=== PATIENT | female | born 1955 | race Caucasian/White ===

== ENCOUNTER → 2022-07-17 | Outpatient (CLI) | payer MEDICARE, SELFPAY ==
[2022-07-17 12:14] LABS: Absolute Neutrophil Count 4.9 X10^3/uL (2.0-7.7); Basophil# 0.12 X10^3/uL; Basophil% 1.3 % (0-1); Eosinophil# 0.35 X10^3/uL; Eosinophils% 3.7 % (0-5); Hematocrit 47.3 % (37-47); Hemoglobin 15.4 g/dL (12.0-15.0); Lymphocyte % 35.6 % (19-41); Mean Corp Hgb Conc 32.6 g/dL (32-36); Mean Corpuscular Hgb 28.4 pg (27.0-32.0); Mean Corpuscular Volume 87.3 fL (81-99); Mean Platelet Vol. 11.3 fl (6.2-12.0); Monocyte# 0.76 X10^3/uL; NRBC Flagged by Analyzer 0 % (0-5); Neutrophil # 4.87 X10^3/uL (2.7-7.7); Platelet Count 407 K/mm3 (150-450); RBC Distribution Width CV 12.9 % (11.6-14.6); RBC Distribution Width SD 40.9 fl (35.1-43.9); Red Blood Count 5.42 M/mm3 (4.2-5.4); White Blood Count 9.5 K/mm3 (4.4-11.0)
[2022-07-17 12:39] LABS: ALB/GLOB Ratio 0.8 RATIO (0.9-2.4); AST(SGOT) 13 U/L (15-37); Alanine Aminotransfer ALT/SGPT 18 U/L (13-56); Albumin, Serum 3.4 g/dL (3.2-5.0); Alkaline Phosphatase 110 U/L (45-117); Anion Gap 13 (5-15); BUN 13 mg/dL (7-18); BUN/Creat Ratio 16.4 RATIO (10-20); Chloride 99 mmol/L (98-107); EST Glomerular Filtration Rate 76 mL/min (>60); Est Glom Filt Rate - Afr Amer 92 mL/min (>60); Globulin 4.4 g/dL (2.2-4.2); Glucose 271 mg/dL (74-106); Potassium 3.3 mmol/L (3.5-5.1); Protein, Total 7.8 g/dL (6.4-8.2); Sodium Level 136 mmol/L (136-145); T4 Free Direct 0.92 ng/dL (0.76-1.46); Thyroid Stim Hormone (TSH) 5.37 uIU/mL (0.358-3.74)
[2022-07-17 13:00] LABS: Microalbumin,Random Urine 86.6 mg/L (NO RANGE EST.); Microalbumin:Creatinine Ratio 29.6 mg/g CRE (<30 mg/g CRE)
== END | disposition home or self-care (01) ==
PROVIDERS: PCP Family Medicine; Referring Provider Family Medicine; Visit Provider Family Medicine
DX: E11.9 Type 2 diabetes mellitus without complications (principal); E03.9 Hypothyroidism, unspecified; I10 Essential (primary) hypertension
CPT/HCPCS: 36415; 80053; 82043; 82570; 84439; 84443; 85025

== ENCOUNTER → 2022-07-24 | Outpatient (CLI) | payer MEDICARE, SELFPAY ==
--- NOTE | 2022-07-24 11:49 | BI_ITS ---
MAMMOGRAPHY - BILATERAL SCREENING REASON FOR EXAM: Female, 66 years old. Routine annual screening examination. PERTINENT HISTORY: Non-contributory. TECHNIQUE: Digital bilateral breast augustus (3D mammographic acquisition) in the CC and MLO projections. 2-D mediolateral oblique (MLO) and craniocaudad (CC) views of both breasts were obtained. CAD: Full Field Digital Mammography with Computer Added Detection was performed. COMPARISON: Comparison is made with prior study dated 06/12/2011. FINDINGS: Breast Composition: The breasts are almost entirely fatty. There are no dominant masses or suspicious calcifications. Stable benign-appearing bilateral axillary lymph nodes. No other significant abnormalities are identified. There has been no significant change since the prior study. BI/SCRN MAMM (CAD)W/AUGUSTUS BILAT IMPRESSION: Stable bilateral screening mammogram. Yearly follow-up mammogram recommended. (A) ASSESSMENT CATEGORY: BIRADS Category 2: Benign. A letter regarding these results will be sent to the patient by the facility within 30 days. Approximately 10% of breast cancers are not detected by mammography. A normal mammogram should not delay biopsy of a clinically suspicious abnormality. [id number] Electronically Signed: Jose Wheeler MD at 12:38 EDT ,
== END | disposition home or self-care (01) ==
LOC: OPBI 11:47
PROVIDERS: PCP Family Medicine; Visit Provider Family Medicine
DX: Z12.31 Encounter for screening mammogram for malignant neoplasm of breast (principal)
CPT/HCPCS: 77063; 77067

== ENCOUNTER → 2022-09-27 | Outpatient (CLI) | payer MEDICARE, SELFPAY ==
[2022-09-27 18:11] LABS: T4 Free Direct 1.14 ng/dL (0.76-1.46); Thyroid Stim Hormone (TSH) 1.89 uIU/mL (0.358-3.74)
== END | disposition home or self-care (01) ==
LOC: BFHLAB 15:17
PROVIDERS: PCP Family Medicine; Visit Provider Family Medicine
DX: E03.9 Hypothyroidism, unspecified (principal)
CPT/HCPCS: 36415; 84439; 84443

== ENCOUNTER → 2023-06-05 | Outpatient (CLI) | payer MEDICARE, SELFPAY ==
[2023-06-05 12:31] LABS: Absolute Lymphocyte Count 2.59 X10^3/uL (0.83-4.51); Absolute Neutrophil Count 4.7 X10^3/uL (2.0-7.7); Basophil# 0.11 X10^3/uL; Basophil% 1.3 % (0-1); Eosinophil# 0.47 X10^3/uL; Eosinophils% 5.5 % (0-5); Hematocrit 44.4 % (37-47); Lymphocyte # 2.59 X10^3/ul (0.83-4.51); Lymphocyte % 30.4 % (19-41); Mean Corp Hgb Conc 31.5 g/dL (32-36); Mean Corpuscular Hgb 27.9 pg (27.0-32.0); Mean Corpuscular Volume 88.4 fL (81-99); Mean Platelet Vol. 10.9 fl (6.2-12.0); Monocyte# 0.63 X10^3/uL; Monocyte% 7.4 % (0-10); NRBC Flagged by Analyzer 0 % (0-5); Neutrophil # 4.67 X10^3/uL (2.7-7.7); Neutrophil % 54.9 % (47-70); Platelet Count 396 K/mm3 (150-450); RBC Distribution Width CV 13.5 % (11.6-14.6); RBC Distribution Width SD 43.8 fl (35.1-43.9); Red Blood Count 5.02 M/mm3 (4.2-5.4); White Blood Count 8.5 K/mm3 (4.4-11.0)
[2023-06-05 13:27] LABS: ALB/GLOB Ratio 0.7 RATIO (0.9-2.4); AST(SGOT) 11 U/L (15-37); Alanine Aminotransfer ALT/SGPT 18 U/L (13-56); Albumin, Serum 3.2 g/dL (3.2-5.0); Alkaline Phosphatase 102 U/L (45-117); Anion Gap 7 (5-15); BUN 10 mg/dL (7-18); BUN/Creat Ratio 12.6 RATIO (10-20); Calcium,Total 9.2 mg/dL (8.5-10.1); Chloride 102 mmol/L (98-107); Cholesterol 236 mg/dL (200); EST Glomerular Filtration Rate 76 mL/min (>60); Est Glom Filt Rate - Afr Amer 92 mL/min (>60); Globulin 4.3 g/dL (2.2-4.2); Glucose 268 mg/dL (74-106); High Density Lipoprotein 43 mg/dL; Potassium 4.1 mmol/L (3.5-5.1); Protein, Total 7.5 g/dL (6.4-8.2); Sodium Level 133 mmol/L (136-145); Triglycerides 172 mg/dL; Very Low Density Lipoprotein 34 mg/dL (5-40)
== END | disposition home or self-care (01) ==
LOC: BIMLAB 10:48
PROVIDERS: PCP Internal Medicine; Referring Provider Internal Medicine; Visit Provider Internal Medicine
DX: I10 Essential (primary) hypertension (principal); E66.01 Morbid (severe) obesity due to excess calories; Z68.43 Body mass index [BMI] 50.0-59.9, adult; E11.9 Type 2 diabetes mellitus without complications; E03.9 Hypothyroidism, unspecified
CPT/HCPCS: 36415; 80053; 80061; 84443; 85025

== ENCOUNTER → 2023-06-18 | Outpatient (CLI) | payer MEDICARE, SELFPAY ==
--- NOTE | 2023-06-18 11:12 | BD_ITS ---
STUDY: DUAL ENERGY X-RAY ABSORPTIOMETRY / DXA REASON FOR EXAM: Female, 67 years old. Screening TECHNIQUE: Bone Mineral Density (BMD) measurements of both forearms were obtained. COMPARISON: None. FINDINGS: Right Forearm: g/cm2 (0.578) / T-score (0.0) / Z-score (1.9) Left Forearm: g/cm2 (0.598) / T-score (0.4) / Z-score (2.3) BD/Dexa Bone Density/Append Skel IMPRESSION: The patient is considered normal as outlined below according to World Mart Organization (WHO) criteria with a low fracture risk. Reference Information: The T-score is the number of standard deviations above or below the standard which is normal for young adults at their peak bone mineral density. The World Health Organization (WHO) interprets the T-scores as follows: Above -1 Normal bone density Between -1 and -2.5 Osteopenia Equal to / or below -2.5 Osteoporosis As a practical clinical guideline, osteopenia may be graded as follows: Mild -1 through -1.5 Moderate -1.6 through -2.0 Severe -2.1 through -2.4 The Z-score is the number of standard deviations above or below age-matched controls. A Z-score of less than -1.5 would be considered abnormal. References: 1. NIH Osteoporosis and Related Bone Diseases www osteo.org 2. International Society for Clinical Densitometry www iscd.org 3. National Osteoporosis Foundation www nof.org Electronically Signed: Jose Wheeler MD at 13:12 EDT ,
== END | disposition home or self-care (01) ==
LOC: OPBD 10:59
PROVIDERS: PCP Internal Medicine; Referring Provider Internal Medicine; Visit Provider Internal Medicine
DX: Z13.820 Encounter for screening for osteoporosis (principal); Z78.0 Asymptomatic menopausal state
CPT/HCPCS: 77080; 77081

== ENCOUNTER → 2024-01-19 | Outpatient (CLI) | payer MEDICARE, SELFPAY ==
--- NOTE | 2024-01-19 09:52 | BI_ITS ---
MAMMOGRAPHY - BILATERAL SCREENING 3-D TOMOSYNTHESIS REASON FOR EXAM: Female, 68 years old. screening PERTINENT HISTORY: No significant family history. TECHNIQUE: 2-D mammograms and 3-D Tomosynthesis of the breast (s) were performed. CAD was performed. COMPARISON: 07/24/2022 FINDINGS: The breast composition is composed of scattered fibroglandular density. Scattered benign calcifications are seen. No dense spiculated masses or suspicious microcalcifications are identified. No architectural distortion is identified. There is no skin thickening or retraction. There has been no significant change since the prior study. BI/SCRN MAMM (CAD)W/AUGUSTUS BILAT IMPRESSION: No mammographic signs of malignancy. Routine yearly mammograms recommended. ASSESSMENT CATEGORY: BIRADS Category 1: Negative. A letter regarding these results will be sent to the patient by the facility within 30 days. FOLLOW UP RECOMMENDATION: Yearly follow up mammogram recommended. (A) Approximately 10% of breast cancers are not detected by mammography. A normal mammogram should not delay biopsy of a clinically suspicious abnormality. Electronically Signed: Kyaw Ding MD at 16:19 EST ,
--- OUTSIDE RECORDS SUMMARY | 2024-01-19 10:11 | XMS RPT_ITS | CCD ---
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 Name Role Phone Simon Raygoza MD Primary Care Provider KARYNA GALINDO Referring Unavailable SIMON RAYGOZA Primary Care Unavailable KARYNA GALINDO Attending Unavailable KARYNA GALINDO Attending Unavailable KARYNA GALINDO Referring Unavailable SIMON RAYGOZA Primary Care Unavailable KARYNA GALINDO Attending Unavailable SIMON RAYGOZA Primary Care Unavailable RONNIE PRATT Referring Unavailable Allergies Allergy Classification Reported Allergen(s) Allergy Type Date of Onset Reaction(s) Facility (1 source) Adhesive Tape Allergy to substance 06-05-2023 [facility] (1 source) Grass pollen Drug Allergy 06-05-2023 [facility] (1 source) house dust allergenic extract Drug Allergy 06-05-2023 [facility] (1 source) Latex Drug Allergy 12-17-2022 [facility] (1 source) Mold Extract Drug Allergy 06-05-2023 [facility] (1 source) Adhesive Tape-Silicones Drug Allergy 12-17-2022 [facility] Medications Current Medications Medication Drug Class(es) Dates Sig (Normalized) Sig (Original) benoxinate hydrochloride 4 mg/ml / fluorescein sodium 2.5 mg/ml ophthalmic solution (1 source) Diagnostic Dye Start: 08-04-2023 End: 08-04-2023 fluorescein-benoxi tammy 0.25-0.4 % 1 Drop (FLURESS) phenylephrine hydrochloride 25 mg/ml ophthalmic solution (1 source) alpha-1 Adrenergic Agonist Start: 08-04-2023 End: 08-04-2023 PHENYLephrine 2.5 % 1 Drop (AK-DILATE, ZENA-SYNEPHRINE) proparacaine hydrochloride 5 mg/ml ophthalmic solution (1 source) Local Anesthetic Start: 08-04-2023 End: 08-04-2023 proparacaine 0.5 % 1 Drop (ALCAINE) tropicamide 10 mg/ml ophthalmic solution (1 source) Anticholinergic Start: 08-04-2023 End: 08-04-2023 tropicamide 1 % 1 Drop (MYDRIACYL) Completed/Discontinued Medications Medication Drug Class(es) Dates Sig (Normalized) Sig (Original) 0.5 ml dulaglutide 3 mg/ml auto-injector (1 source) GLP-1 Receptor Agonist Start: 12-17-2023 TRULICITY 1.5 mg/0.5 mL pen injector fluorometholone 1 mg/ml ophthalmic suspension (2 sources) Corticosteroid Start: 08-20-2023 fluorometholone (FML LIQUID FILM) 0.1 % ophthalmic suspension Use 1 Drop in both eyes three times a day. 5 mL 2 08/20/2023 Active Problems Active Problems Problem Classification Problem Date Documented Da te Episodic/Chronic Cataract (8 sources) Senile combined form cataract of right eye; Translations: [Combined forms of age-related cataract, right eye] Onset: 08-20-2023 08-04-2023 Chronic Diabetes mellitus without complication (4 sources) Diabetes mellitus type 2 without retinopathy; Translations: [Type 2 diabetes mellitus without complications] Onset: 08-20-2023 08-04-2023 Chronic Disorders of lipid metabolism (4 sources) Hypercholesterolemi a; Translations: [Pure hypercholesterolemi a, unspecified] Onset: 08-20-2023 08-04-2023 Chronic Essential hypertension (3 sources) Essential hypertension; Translations: [Essential (primary) hypertension] Onset: 08-20-2023 01-14-2024 Chronic Other eye disorders (1 source) Optic atrophy of right eye; Translations: [Other optic atrophy, right eye] 08-04-2023 Chronic Other eye disorders (2 sources) Atrophy of optic disc; Translations: [Unspecified optic atrophy] Onset: 08-20-2023 01-14-2024 Chronic Other eye disorders (1 source) Unspecified optic atrophy; Translations: [Optic disc atrophy, right] Onset: 08-20-2023 Chronic Other nervous system disorders (3 sources) History of optic neuritis; Translations: [Personal history of other diseases of the nervous system and sense organs] Onset: 08-20-2023 08-04-2023 Episodic Past or Other Problems Problem Classification Problem Date Documented Da te Episodic/Chronic Blindness and vision defects (5 sources) Visual field defect; Translations: [Unspecified visual field defects] Onset: 08-20-2023 01-14-2024 Episodic Other nervous system disorders (1 source) Personal history of other diseases of the nervous system and sense organs; Translations: [History of optic neuritis] Onset: 08-20-2023 Episodic Results Test Name Value Interpretation Reference Range Facil ity Vital Signs Date Time Vital Sign Value Performing Clinician Faci lity 01-14-2024 13:19-0500 Diastolic blood pressure 76 mm[Hg] Karyna Galindo MD Work Phone: [facility] 01-14-2024 13:19-0500 Heart rate 92 /min Karyna Galindo MD Work Phone: [facility] 01-14-2024 13:19-0500 Systolic blood pressure 119 mm[Hg] Karyna Galindo MD Work Phone: [facility] 08-04-2023 09:39-0400 Diastolic blood pressure 82 mm[Hg] Karyna Galindo MD Work Phone: [facility] 08-04-2023 09:39-0400 Heart rate 71 /min Karyna Galindo MD Work Phone: [facility] 08-04-2023 09:39-0400 Systolic blood pressure 146 mm[Hg] Karyna Galindo MD Work Phone: [facility] Encounters Encounter Date Encounter Type Care Provider Facility Start: 01-14-2024 End: 01-14-2024 ambulatory KARYNA GALINDO Facility:[facility] Start: 01-14-2024 End: 01-14-2024 Patient encounter procedure Karyna Galindo MD Work Phone: Ophthalmology Procedures Date Procedure Procedure Detail Performing Clinician Start: 01-14-2024 IOL BIOMETRY W/ IOL CALC OU (BOTH EYES) Karyna Galindo MD Work Phone: Start: 08-04-2023 IOL BIOMETRY W/ IOL CALC OU (BOTH EYES) Karyna Galindo MD Work Phone: Start: 08-04-2023 Fundus photography w/interpretation & report Karyna Galindo MD Work Phone: Plan of Treatment Date Care Activity Detail Author Start: 01-14-2025 BP Controlled (<130/80) BP Controlle d (<130/80) [facility] Start: 12-15-2024 Pneumococcal Vaccine : 65+ (2 of 2 - PCV) Pneumococcal Vaccine: 65+ (2 of 2 - PCV) [facility] Start: 08-04-2024 Glaucoma screening Dilated Retinal E xam [facility] Start: 11-17-2023 Advance Directive Discussion Advance Directive Discussion [facility] Start: 11-17-2023 Depression Assessment [facility] Start: 07-18-2023 Covid-19 Vaccine ( season) Covid-19 Vaccine () [facility] Start: 07-18-2023 Influenza vaccination Influenza Vacc ine (#1) [facility] Start: 11-17-2022 Advance Directive Discussion Advance Directive Discussion [facility] Start: 11-17-2022 Depression Assessment Depression Ass essment [facility] Start: 2018 Bone Density Screening Bone Density Screening [facility] Start: 2018 Pneumococcal Vaccine : 65+ (1 - PCV) Pneumococcal Vaccine: 65+ (1 - PCV) [facility] Start: 2018 Screening for osteoporosis Bone Dens ity Screening [facility] Start: 2013 RSV Vaccine (1 - 1-d ose 60+ series) RSV Vaccine (1 - 1-dose 60+ series) [facility] Start: 2003 Shingrix Vaccine (1 of 2) Shingrix V accine (1 of 2) [facility] Start: 1998 Cologuard (FIT-DNA) Cologuard (FIT-D NA) [facility] Start: 1998 Colonoscopy Colonoscopy [facility] Start: 1998 Colorectal Cancer Screening Colorectal Cancer Screening [facility] Start: [address] COLONOGRAPHY [facility] Start: 1998 Diabetes Screening Diabetes Screenin g [facility] Start: 1998 Fecal Occult Blood Fecal Occult Bloo d [facility] Start: 1998 Lipid 1996 panel - S israel or Plasma Lipid Screening [facility] Start: 1998 Screening for malign ant neoplasm of colon [facility] Start: 1998 SIGMOIDOSCOPY SIGMOIDOSCOPY [facility] Start: 1993 Mammography Mammogram Screening [facility] Start: 1993 Screening for malign ant neoplasm of breast Mammogram Screening [facility] Start: 1972 Urine microalbumin profile DTa P,Tdap,Td Vaccine (1 - Tdap) [facility] Start: 1971 Annual PCP Team [employer] ida Disease Visit Annual PCP Team Chronic Disease Visit [facility] Start: 1971 Hepatitis B surface antibody level LDL Cholesterol [facility] Start: 1971 Hepatitis C Screening Hepatitis C Sc [facility] Start: 1971 Hepatitis C screening Hepatitis C [facility] Start: 1963 Diabetic foot examination Diabetic F oot Exam [facility] Start: 1963 Hepatitis B screening Urine Al bumin:Creatinine Ratio [facility] Start: 1958 Hemoglobin A1c measurement HbA1C [facility] Start: 06-20-1956 Covid-19 Vaccine (#1) Covid-19 Vacci ne (#1) [facility] Payers Date Payer Category Payer Medicare [id number] 2023 Medicare [id number] 2023 Medicare [id number] Social History Date Type Detail Facility Start: 08-04-2023 Tobacco smoking stat us NHIS Never smoked tobacco [facility] Start: 08-04-2023 Tobacco use and exposure Smoke less tobacco non-user [facility] Start: 08-04-2023 End: 01-14-2024 Alcohol intake Lifetime non-drinker (finding) [facility] Start: 08-04-2023 End: 01-14-2024 History of Social function [facility] Start: 08-04-2023 End: 01-14-2024 Tobacco use panel [facility] National Score (1-10 0), lower number is lower risk 72 [facility] Start: 1955 Sex Assigned At Not on file C [facility] Progress note 01-14-2024 Note Date & Type Note Facility 01-14-2024 Note HNO ID: [id number] Author: KARYNA GALINDO MD Service: ? Author Type: Physician Type: Progress Notes Filed: 01/14/2024 13:56 Note Text: ASSESSMENT/PLAN: 1. Combined forms of age-related cataract of right eye - ICD9: 366.19, ICD10: H25.811 (primary diagnosis) PHYSICAL EXAM: Vital Signs: Blood pressure 119/76, pulse 92. Respiratory: Normal breath sounds, no wheezing. CARD: Normal heart sounds 1 AND 2, normal sinus rhythm. Geri Barger has confirmed that she is no longer able to function adequately on a day-to-day basis because of her current visual condition. Further, it is my medical opinion that the cataract is the primary cause, or at least a significant cause of her visual dysfunction. Other eye diseases have been ruled out as primary cause of decreased vision. It is my expectation that visual function and quality of life will improve significantly with cataract extraction and intraocular lens implantation. The risks, benefits, alternatives, and complications of cataract surgery with intraocular lens implantation were discussed with Geri Barger in detail. Geri Barger appeared to understand and asked that I proceed with plans for cataract surgery. Upon eye examination, patient was found to have a visually significant cataract right eye . Discussed cataract surgery with patient and different intraocular lens implant options with patient: basic monofocal intraocular lens implant, Toric intraocular lens implant, and presbyopia correction intraocular lens implant. In my medical opinion, based on medical history and ocular examination, cataract surgery with intraocular lens implant will correct patient's vision and improve quality of patient's daily living activities. Patient wishes to have traditional cataract surgery with basic intraocular lens right eye 02/05/2024. Patient wishes to have cataract surgery with the option stated above. Patient understands that an intraocular lens implant does not necessarily replace the need for glasses. Patient understands that it is impossible for the surgeon to inform him/her of every possible complication that may occur. The surgeon has answered all of the patient's questions. Patient understands that if he/she has a mature or dense cataract, pseudoexfoliation cataract, or history of use of Flomax, he/she may require the use of Maluyugin Ring and/or Vision Blue during surgery. Patient understands the risks, benefits, and alternatives to surgery. A complete, comprehensive eye examination and biometry has been performed on Geri Barger. Begin: Current Ophthalmic Meds fluorometholone (FML LIQUID FILM) 0.1 % ophthalmic suspension Use 1 Drop in both eyes three times daily. Systane Complete Artificial Tears - Use 1 Drop into both eyes three times a day. 2. Combined forms of age-related cataract of left eye - ICD9: 366.19, ICD10: H25.812 Plan surgery left eye once right eye is stable 3. DM type 2 without retinopathy (HCC) - ICD9: 250.00, ICD10: E11.9 - Please keep your blood sugar under good control to minimize risk of ocular complications from diabetes. Last A1c 7.3 - Continue to monitor with PCP 4. Visual field loss right eye 5. History of optic neuritis - ICD9: V12.49, ICD10: Z86.69 6. Other optic atrophy, right eye - ICD9: 377.10, ICD10: H47.291 Central scotoma right eye Discussed with patient that this field loss will not improve with cataract surgery, may be more pronounced post surgery 7.High myopia both eyes Reviewed signs, symptoms of Retinal detachment with patient 8. Hypercholesteremia - ICD9: 272.0, ICD10: E78.00 9. Essential hypertension - Continue to monitor with PCP I have confirmed and edited as necessary the relevant HPI, ophthalmic history, ROS, and the neuro exam findings as obtained by others. I have seen and examined Geri Barger. I have discussed the case and the management of this patient's care with the Resident/Fellow, if applicable. I also have reviewed and agree with the assessment and plan as stated above and agree with all of its relevant components. [facility] History and physical note 01-14-2024 Karyna Galindo MD - 01/14/2024 1:53 PM EST Note Date & Type Note Facility 01-14-2024 History and physi lidia note HISTORY AND PHYSICAL EXAMINATION SERVICE DATE: 01/14/2024 SERVICE TIME: PRIMARY CARE PHYSICIAN: Simon Raygoza MD REASON FOR VISIT: Geri Barger is a 68 year old female who is being seen for combined age related cataract right eye The patient has the following: ACTIVE PROBLEM LIST Combined Form of Age-Related Cataract, Right Eye Combined Form of Age-Related Cataract, Left Eye Type 2 Diabetes Mellitus Without Retinopathy (Hcc) History of Optic Neuritis Optic Disc Atrophy, Right Visual field loss/right eye High Myopia, Bilateral Essential Hypertension Hypercholesteremia SUBJECTIVE CHIEF COMPLAINT: Combined age related cataract right eye HPI: blurry vision, difficulty reading, difficulty watching television, difficulty with glare both eyes PAST MEDICAL HISTORY Diagnosis Date Hypercholesteremia Hypothyroidism Optic neuritis 1997 Right Eye Type 2 diabetes mellitus (HCC) History reviewed. No pertinent surgical history. FAMILY HISTORY Problem Relation Age of Onset No Ocular Disease No Family History SOCIAL HISTORY: Social History Tobacco Use Smoking status: Never Smokeless tobacco: Never Substance Use Topics Alcohol use: Never Drug use: Never MEDICATIONS: Prior to Admission medications as of 01/14/24 1315 Medication Sig Last Dose Taking TRULICITY 1.5 mg/0.5 mL pen injector Taking Yes lisinopril (ZESTRIL) 20 mg tablet Take 20 mg by mouth two times a day. Taking Yes levothyroxine (SYNTHROID) 88 mcg tablet Taking Yes lovastatin (MEVACOR) 20 mg tablet Taking Yes glipiZIDE (GLUCOTROL) 10 mg tablet Take 10 mg by mouth twice daily before meals. Taking Yes fluorometholone (FML LIQUID FILM) 0.1 % ophthalmic suspension Use 1 Drop in both eyes three times a day. No medication comments found. CURRENT ALLERGIES: ALLERGIES Allergen Reactions Adhesive Tape (Janeth* Rash Grass Pollen Rash House Dust Rash Mold Rash Adhesive Tape-Silic* Rash Latex Rash REVIEW OF SYSTEMS: PAIN ASSESSMENT: General: No weight loss, malaise or fevers. Neuro: No Hx of stroke or seizures Respiratory: No history of current cough or dyspnea, or pneumonia in the past 6 weeks. No history of respiratory/pulmonary symptoms or problems Cardiovascular: Positive for: Hypertension GI: No history of GI symptoms or problems. No history of esophageal varices, recent ascites, or ETOH greater than 2 drinks per day. : No history of UTI in past 6 weeks. No history of renal failure. Not currently on or requiring dialysis. No history of symptoms or problems. PATIENT SUPPORT ASSOCIATE: Negative for abnormal vaginal bleeding, abnormal vaginal discharge. : Denies Endocrine: Diabetes Mellitus on insulin Hematology: No history of bleeding or clotting disorder. Pt is not taking anti-coagulation or platelet medications. No history of hematological symptoms or problems. Oncology: No history of CA metastasis, chemo within 30 days, or radiotherapy within 90 days. Has not lost 10% of body wt in 6 months. No history of oncological symptoms or problems. Psych: No history of psychiatric symptoms or problems. Musculoskeletal: Negative for joint pain or swelling, back pain or muscle pain. Skin: Negative for lesions, rash and itching. PHYSICAL EXAM: VITALS: BP 119/76 Pulse 92 General: Alert and oriented Skin: Normal color, no rash, no lesions. HEENT: EOM, pupils equal, round and reactive. Cardiovascular: Normal S1 & S2, no rubs, murmurs or gallops. No JVD. Pulse regular. Lungs: Normal breath sounds, no wheezes or crackles. Abdomen: Soft, non-tender, no rigidity. Extremities: No deformity, no edema or tenderness, no joint swelling or clubbing. Neurological: Normal cognition and motor skills. Pulses: Carotid and radial pulses normal +2. Diagnostic tests reviewed for today's visit: No new labs or tests ASSESSMENT Medication and Non-Pharmacologic VTE Prophylaxis/Anticoagulants VTE Prophylaxis: VTE prophylaxis appropriate Impression: There is no known pertinent medical condition which may affect jie-operative course Clinical Risk Factors for Possible Cardiac Complications: None Patient is scheduled for a low-risk procedure. FUNCTIONAL STATUS: Walk indoors, such as around the house (1.75 METs) Functional Class (NYHA): N/A [facility]: Not obtained PLAN CONSULTS: Patient does not require consults for optimization at this time. The Following Tests/Procedures Have Been Initiated: None Instructions Given to Patient: Patient given verbal and written preop instructions and voices comprehension and compliance. SIGNATURE: Karyna Galindo MD PATIENT NAME: Geri Barger DATE: January 14, 2024 TIME: 1:53 PM PAGER/CONTACT #: documented in this encounter [facility] Instructions 01-14-2024 Patient Instructions Note Date & Type Note Facility 01-14-2024 Instructions Karyna Galindo MD - 01/14/2024 1:40 PM EST Continue: Current Ophthalmic Meds fluorometholone (FML LIQUID FILM) 0.1 % ophthalmic suspension Use 1 Drop in both eyes three times daily. Systane Complete Artificial Tears - Use 1 Drop into both eyes three times a day. Surgery is scheduled for right eye 02/05/2024 If you have any questions please contact our office at [phone]. After office hours or on the weekend, please call Dr. Galindo on his cell phone at [phone]. documented in this encounter [facility] History of Present illness Narrative 01-14-2024 Karyna Galindo MD - 01/14/2024 1:33 PM EST Note Date & Type Note Facility 01-14-2024 History of Presen t illness Narrative ASSESSMENT/PLAN: 1. Combined forms of age-related cataract of right eye - ICD9: 366.19, ICD10: H25.811 (primary diagnosis) PHYSICAL EXAM: Vital Signs: Blood pressure 119/76, pulse 92. Respiratory: Normal breath sounds, no wheezing. CARD: Normal heart sounds 1 & 2, normal sinus rhythm. Geri Barger has confirmed that she is no longer able to function adequately on a day-to-day basis because of her current visual condition. Further, it is my medical opinion that the cataract is the primary cause, or at least a significant cause of her visual dysfunction. Other eye diseases have been ruled out as primary cause of decreased vision. It is my expectation that visual function and quality of life will improve significantly with cataract extraction and intraocular lens implantation. The risks, benefits, alternatives, and complications of cataract surgery with intraocular lens implantation were discussed with Geri Barger in detail. Geri Barger appeared to understand and asked that I proceed with plans for cataract surgery. Upon eye examination, patient was found to have a visually significant cataract right eye . Discussed cataract surgery with patient and different intraocular lens implant options with patient: basic monofocal intraocular lens implant, Toric intraocular lens implant, and presbyopia correction intraocular lens implant. In my medical opinion, based on medical history and ocular examination, cataract surgery with intraocular lens implant will correct patient's vision and improve quality of patient's daily living activities. Patient wishes to have traditional cataract surgery with basic intraocular lens right eye 02/05/2024. Patient wishes to have cataract surgery with the option stated above. Patient understands that an intraocular lens implant does not necessarily replace the need for glasses. Patient understands that it is impossible for the surgeon to inform him/her of every possible complication that may occur. The surgeon has answered all of the patient's questions. Patient understands that if he/she has a mature or dense cataract, pseudoexfoliation cataract, or history of use of Flomax, he/she may require the use of Maluyugin Ring and/or Vision Blue during surgery. Patient understands the risks, benefits, and alternatives to surgery. A complete, comprehensive eye examination and biometry has been performed on Geri Barger. Begin: Current Ophthalmic Meds fluorometholone (FML LIQUID FILM) 0.1 % ophthalmic suspension Use 1 Drop in both eyes three times daily. Systane Complete Artificial Tears - Use 1 Drop into both eyes three times a day. 2. Combined forms of age-related cataract of left eye - ICD9: 366.19, ICD10: H25.812 Plan surgery left eye once right eye is stable 3. DM type 2 without retinopathy (HCC) - ICD9: 250.00, ICD10: E11.9 - Please keep your blood sugar under good control to minimize risk of ocular complications from diabetes. Last A1c 7.3 - Continue to monitor with PCP 4. Visual field loss right eye 5. History of optic neuritis - ICD9: V12.49, ICD10: Z86.69 6. Other optic atrophy, right eye - ICD9: 377.10, ICD10: H47.291 Central scotoma right eye Discussed with patient that this field loss will not improve with cataract surgery, may be more pronounced post surgery 7.High myopia both eyes Reviewed signs, symptoms of Retinal detachment with patient 8. Hypercholesteremia - ICD9: 272.0, ICD10: E78.00 9. Essential hypertension - Continue to monitor with PCP I have confirmed and edited as necessary the relevant HPI, ophthalmic history, ROS, and the neuro exam findings as obtained by others. I have seen and examined Geri Barger. I have discussed the case and the management of this patient's care with the Resident/Fellow, if applicable. I also have reviewed and agree with the assessment and plan as stated above and agree with all of its relevant components. documented in this encounter [facility] Progress note 08-20-2023 Note Date & Type Note Facility 08-20-2023 Note HNO ID: [id number] Author: Karyna Galindo MD Service: ? Author Type: Physician Type: Progress Notes Filed: 08/20/2023 10:57 AM Note Text: ASSESSMENT/PLAN: 1. Combined forms of age-related cataract of right eye - ICD9: 366.19, ICD10: H25.811 (primary diagnosis) PHYSICAL EXAM: Vital Signs: Blood pressure 146/82, pulse 71. Respiratory: Normal breath sounds, no wheezing. CARD: Normal heart sounds 1 AND 2, normal sinus rhythm. Geri Barger has confirmed that she is no longer able to function adequately on a day-to-day basis because of her current visual condition. Further, it is my medical opinion that the cataract is the primary cause, or at least a significant cause of her visual dysfunction. Other eye diseases have been ruled out as primary cause of decreased vision. It is my expectation that visual function and quality of life will improve significantly with cataract extraction and intraocular lens implantation. The risks, benefits, alternatives, and complications of cataract surgery with intraocular lens implantation were discussed with Geri Barger in detail. Geri Barger appeared to understand and asked that I proceed with plans for cataract surgery. Upon eye examination, patient was found to have a visually significant cataract right eye . Discussed cataract surgery with patient and different intraocular lens implant options with patient: basic monofocal intraocular lens implant, Toric intraocular lens implant, and presbyopia correction intraocular lens implant. In my medical opinion, based on medical history and ocular examination, cataract surgery with intraocular lens implant will correct patient's vision and improve quality of patient's daily living activities. Patient wishes to have traditional cataract surgery with basic intraocular lens right eye 09/11/2023. Patient wishes to have cataract surgery with the option stated above. Patient understands that an intraocular lens implant does not necessarily replace the need for glasses. Patient understands that it is impossible for the surgeon to inform him/her of every possible complication that may occur. The surgeon has answered all of the patient's questions. Patient understands that if he/she has a mature or dense cataract, pseudoexfoliation cataract, or history of use of Flomax, he/she may require the use of Maluyugin Ring and/or Vision Blue during surgery. Patient understands the risks, benefits, and alternatives to surgery. A complete, comprehensive eye examination and biometry has been performed on Geri Barger. Patient scheduled for surgery 09/11/2023 Continue: Current Ophthalmic Meds fluorometholone (FML LIQUID FILM) 0.1 % ophthalmic suspension Use 1 Drop in both eyes three times daily. Systane Complete Artificial Tears - Use 1 Drop into both eyes three times a day. 2. Combined forms of age-related cataract of left eye - ICD9: 366.19, ICD10: H25.812 - Plan cataract surgery left eye 09/25/23 3. DM type 2 without retinopathy (HCC) - ICD9: 250.00, ICD10: E11.9 - Please keep your blood sugar under good control to minimize risk of ocular complications from diabetes. - Continue to monitor with PCP 4. Visual field loss right eye 5. History of optic neuritis - ICD9: V12.49, ICD10: Z86.69 6. Other optic atrophy, right eye - ICD9: 377.10, ICD10: H47.291 Central scotoma right eye Discussed with patient that this field loss will not improve with cataract surgery, may be more pronounced post surgery 7. Hypercholesteremia - ICD9: 272.0, ICD10: E78.00 8. Essential hypertension - Continue to monitor with PCP Karyna Galindo MD I have confirmed and edited as necessary the relevant ophthalmic history, review of systems, surgical history, and ophthalmological examination findings as obtained by the ophthalmic technical staff. I have seen and examined Geri Barger. I have discussed the examination findings, diagnosis, and treatment options with Geri Barger and/or her family. I have also reviewed and agree with the assessment and plan as stated above and agree with all its relevant components. I gave the patient the opportunity to ask questions about the findings, diagnosis, and treatment options. [facility] Progress note 08-04-2023 Note Date & Type Note Facility 08-04-2023 Note HNO ID: [id number] Author: Karyna Galindo MD Service: ? Author Type: Physician Type: Progress Notes Filed: 08/04/2023 10:46 AM Note Text: ASSESSMENT/PLAN: 1. Combined forms of age-related cataract of right eye - ICD9: 366.19, ICD10: H25.811 (primary diagnosis) - IOL BIOMETRY W/ IOL CALC OU (BOTH EYES) Geri Barger has confirmed that she is no longer able to function adequately on a day-to-day basis because of her current visual condition. Further, it is my medical opinion that the cataract is the primary cause, or at least a significant cause of her visual dysfunction. Other eye diseases have been ruled out as primary cause of decreased vision. It is my expectation that visual function and quality of life will improve significantly with cataract extraction and intraocular lens implantation. The risks, benefits, alternatives, and complications of cataract surgery with intraocular lens implantation were discussed with Geri Barger in detail. Geri Barger appeared to understand and asked that I proceed with plans for cataract surgery. A complete, comprehensive eye examination and biometry has been performed on Geri Barger. Blood pressure 146/82, pulse 71. Start Current Ophthalmic Meds fluorometholone (FML LIQUID FILM) 0.1 % ophthalmic suspension Use 1 Drop in both eyes once daily. Systane Complete Artificial Tears - Use 1 Drop into both eyes three times a day. 2. Combined forms of age-related cataract of left eye - ICD9: 366.19, ICD10: H25.812 - Plan cataract surgery left eye 09/25/23 3. DM type 2 without retinopathy (HCC) - ICD9: 250.00, ICD10: E11.9 - Please keep your blood sugar under good control to minimize risk of ocular complications from diabetes. - Continue to monitor with PCP 4. History of optic neuritis - ICD9: V12.49, ICD10: Z86.69 5. Other optic atrophy, right eye - ICD9: 377.10, ICD10: H47.291 - FUNDUS PHOTOS OU (BOTH EYES) - Return in 2 weeks for Visual field test 6. Hypercholesteremia - ICD9: 272.0, ICD10: E78.00 - Continue to monitor with PCP I have confirmed and edited as necessary the relevant ophthalmic history, review of systems, surgical history, and ophthalmological examination findings as obtained by the ophthalmic technical staff. I have seen and examined Geri Barger. I have discussed the examination findings, diagnosis, and treatment options with Geri Barger and/or her family. I have also reviewed and agree with the assessment and plan as stated above and agree with all its relevant components. I gave the patient the opportunity to ask questions about the findings, diagnosis, and treatment options. Karyna Galindo MD [facility] Instructions 08-04-2023 Patient Instructions Note Date & Type Note Facility 08-04-2023 Instructions Karyna Galindo MD - 08/04/2023 10:45 AM EDT Start Current Ophthalmic Meds fluorometholone (FML LIQUID FILM) 0.1 % ophthalmic suspension Use 1 Drop in both eyes once daily. Systane Complete Artificial Tears - Use 1 Drop into both eyes three times a day. Cataract surgery right eye scheduled on 09/11/23, left eye is scheduled on 09/25/23 If you have any questions please contact our office at [phone]. After office hours or on the weekend, please call Dr. Galindo on his cell phone at [phone]. documented in this encounter [facility] History of Present illness Narrative 08-04-2023 Karyna Galindo MD - 08/04/2023 10:37 AM EDT Note Date & Type Note Facility 08-04-2023 History of Presen t illness Narrative ASSESSMENT/PLAN: 1. Combined forms of age-related cataract of right eye - ICD9: 366.19, ICD10: H25.811 (primary diagnosis) - IOL BIOMETRY W/ IOL CALC OU (BOTH EYES) Geri Barger has confirmed that she is no longer able to function adequately on a day-to-day basis because of her current visual condition. Further, it is my medical opinion that the cataract is the primary cause, or at least a significant cause of her visual dysfunction. Other eye diseases have been ruled out as primary cause of decreased vision. It is my expectation that visual function and quality of life will improve significantly with cataract extraction and intraocular lens implantation. The risks, benefits, alternatives, and complications of cataract surgery with intraocular lens implantation were discussed with Geri Barger in detail. Geri Barger appeared to understand and asked that I proceed with plans for cataract surgery. A complete, comprehensive eye examination and biometry has been performed on Geri Barger. Blood pressure 146/82, pulse 71. Start Current Ophthalmic Meds fluorometholone (FML LIQUID FILM) 0.1 % ophthalmic suspension Use 1 Drop in both eyes once daily. Systane Complete Artificial Tears - Use 1 Drop into both eyes three times a day. 2. Combined forms of age-related cataract of left eye - ICD9: 366.19, ICD10: H25.812 - Plan cataract surgery left eye 09/25/23 3. DM type 2 without retinopathy (HCC) - ICD9: 250.00, ICD10: E11.9 - Please keep your blood sugar under good control to minimize risk of ocular complications from diabetes. - Continue to monitor with PCP 4. History of optic neuritis - ICD9: V12.49, ICD10: Z86.69 5. Other optic atrophy, right eye - ICD9: 377.10, ICD10: H47.291 - FUNDUS PHOTOS OU (BOTH EYES) - Return in 2 weeks for Visual field test 6. Hypercholesteremia - ICD9: 272.0, ICD10: E78.00 - Continue to monitor with PCP I have confirmed and edited as necessary the relevant ophthalmic history, review of systems, surgical history, and ophthalmological examination findings as obtained by the ophthalmic technical staff. I have seen and examined Geri Barger. I have discussed the examination findings, diagnosis, and treatment options with Geri Barger and/or her family. I have also reviewed and agree with the assessment and plan as stated above and agree with all its relevant components. I gave the patient the opportunity to ask questions about the findings, diagnosis, and treatment options. Karyna Galindo MD documented in this encounter [facility] Evaluation note Note Date & Type Note Facility documented in this encounter [facility] Evaluation note Note Date & Type Note Facility documented in this encounter [facility] Medications Administered Section Active Administered Medications - up to 3 most recent administrations Medication Order MAR Action Action Date Dose Rate Site fluorescein-benoxinate 0.25-0.4 % 1 Drop (FLURESS) 1 Drop, BOTH EYES, DIRECTED, Starting on Fri08/04/23 at 0900, Until Fri08/04/23 at 2058, Administer for applanation tonometry. In the event of a Fluress shortage, administer Vani-Fluor 1 drop into both eyes as directed for applanation tonometry Given 08/04/2023 9:00 AM EDT 1 Drop PHENYLephrine 2.5 % 1 Drop (AK-DILATE, ZENA-SYNEPHRINE) 1 Drop, BOTH EYES, DIRECTED, Starting on Fri08/04/23 at 0900, Until Fri08/04/23 at 2058, Administer for dilation PROTECT FROM LIGHT Given 08/04/2023 9:00 AM EDT 1 Drop proparacaine 0.5 % 1 Drop (ALCAINE) 1 Drop, BOTH EYES, DIRECTED, Starting on Fri08/04/23 at 0900, Until Fri08/04/23 at 2058, Administer for pneumo tonometry, tonopen tonometry, or pachymetry. In the event of a proparacaine shortage, administer tetracaine 0.5% ophthalmic drops 1 drop in the left eye as directed for pneumo tonometry, tonopen tonometry, or pachymetry Given 08/04/2023 9:00 AM EDT 1 Drop tropicamide 1 % 1 Drop (MYDRIACYL) 1 Drop, BOTH EYES, DIRECTED, Starting on Fri08/04/23 at 0900, Until Fri08/04/23 at 2058, Administer for dilation Given 08/04/2023 9:00 AM EDT 1 Drop Summary Purpose Family History No Family History Records Found Advance Directives No Advanced Directives Records Found Additional Source Comments Source Comments (unrecognize d section and content) In the event this informatio n is protected by the Federal Confidentiality of Alcohol and Drug Abuse Patient Records regulations: The Federal rules restrict any use of the information to criminally investigate or prosecute any alcohol or drug abuse patient.[facility] the event this information is protected by the Federal Confidentiality of Alcohol and Drug Abuse Patient Records regulations: The Federal rules restrict any use of the information to criminally investigate or prosecute any alcohol or drug abuse patient.[facility] Reason for Visit (unrecogniz ed section and content) Reason Comments Cataract Follow Up Diabetes Specialty Diagnoses / Procedures Referred By Contac t Referred To Contact Ophthalmology / OPHTHALMOLOGY Diagnoses Combined forms of age-related cataract, right eye ascan/schedule surgery Procedures OFFICE/OUTPATIENT ESTABLISHED LOW MDM 20 MIN EST ADULT Karyna Galindo MD [address] [place] [address] Karyna Galindo MD [address] [place], [place] [id number] Referral ID Status Reason Start Date Expiration Date Visits Re quested Visits Authorized [id number] Closed 12/26/2023 11/16/2024 1 1 Care Teams (unrecognized sec tion and content) 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 This clinical summary was aggregated from multiple sources. Caution should be exercised in using it in the provision of clinical care. This summary normalizes information from multiple sources, and as a consequence, information in this document may materially change the coding, format and clinical context of patient data. In addition, data may be omitted in some cases. CLINICAL DECISIONS SHOULD BE BASED ON THE PRIMARY CLINICAL RECORDS. [email or web address] [facility]. provides no warranty or guarantee of the accuracy or completeness of information in this document.
== END | disposition home or self-care (01) ==
LOC: OPBI 09:52
PROVIDERS: PCP Internal Medicine; Referring Provider Internal Medicine; Visit Provider Internal Medicine
DX: Z12.31 Encounter for screening mammogram for malignant neoplasm of breast (principal)
CPT/HCPCS: 77063; 77067

== ENCOUNTER → 2024-06-14 | Outpatient (CLI) | payer MEDICARE, SELFPAY ==
[2024-06-14 15:34] LABS: Absolute Lymphocyte Count 2.91 X10^3/uL (0.83-4.51); Basophil# 0.09 X10^3/uL; Basophil% 0.8 % (0-1); Eosinophil# 0.33 X10^3/uL; Eosinophils% 2.9 % (0-5); Hematocrit 43.5 % (37-47); Hemoglobin 14.1 g/dL (12.0-15.0); Lymphocyte # 2.91 X10^3/ul (0.83-4.51); Mean Corp Hgb Conc 32.4 g/dL (32-36); Mean Corpuscular Hgb 28.3 pg (27.0-32.0); Mean Corpuscular Volume 87.2 fL (81-99); Mean Platelet Vol. 10.6 fl (6.2-12.0); Monocyte# 0.82 X10^3/uL; Monocyte% 7.3 % (0-10); NRBC Flagged by Analyzer 0 % (0-5); Neutrophil # 7.01 X10^3/uL (2.7-7.7); Neutrophil % 62.6 % (47-70); Platelet Count 407 K/mm3 (150-450); RBC Distribution Width CV 13.5 % (11.6-14.6); RBC Distribution Width SD 43.4 fl (35.1-43.9); Red Blood Count 4.99 M/mm3 (4.2-5.4); White Blood Count 11.2 K/mm3 (4.4-11.0)
[2024-06-14 15:57] LABS: Vitamin D,25 Hydroxy 18.2 ng/mL
[2024-06-14 16:12] LABS: ALB/GLOB Ratio 0.8 RATIO (0.9-2.4); AST(SGOT) 16 U/L (15-37); Alanine Aminotransfer ALT/SGPT 20 U/L (13-56); Albumin, Serum 3.5 g/dL (3.2-5.0); Alkaline Phosphatase 102 U/L (45-117); Anion Gap 5 (5-15); BUN 11 mg/dL (7-18); BUN/Creat Ratio 12.7 RATIO (10-20); Calcium,Total 9.5 mg/dL (8.5-10.1); Chloride 106 mmol/L (98-107); Cholesterol 202 mg/dL (200); Creatinine, Serum 0.86 mg/dL (0.55-1.02); EST Glomerular Filtration Rate 69 mL/min (>60); Est Glom Filt Rate - Afr Amer 83 mL/min (>60); Globulin 4.4 g/dL (2.2-4.2); Glucose 130 mg/dL (74-106); High Density Lipoprotein 44 mg/dL; Protein, Total 7.9 g/dL (6.4-8.2); Sodium Level 136 mmol/L (136-145); Thyroid Stim Hormone (TSH) 2.22 uIU/mL (0.358-3.74); Triglycerides 167 mg/dL; Very Low Density Lipoprotein 33 mg/dL (5-40)
== END | disposition home or self-care (01) ==
LOC: BIMLAB 13:47
PROVIDERS: PCP Internal Medicine; Referring Provider Internal Medicine; Visit Provider Internal Medicine
DX: I10 Essential (primary) hypertension (principal); E66.01 Morbid (severe) obesity due to excess calories; Z68.43 Body mass index [BMI] 50.0-59.9, adult; E11.9 Type 2 diabetes mellitus without complications; E03.9 Hypothyroidism, unspecified; E55.9 Vitamin D deficiency, unspecified; K21.9 Gastro-esophageal reflux disease without esophagitis
CPT/HCPCS: 36415; 80053; 80061; 82306; 84443; 85025

== ENCOUNTER → 2025-09-24 | Outpatient (CLI) | payer MEDICARE, SELFPAY ==
[2025-09-24 11:23] LABS: Hematocrit 41.6 % (37-47); Hemoglobin 13.7 g/dL (12.0-15.0); Immature Granulocytes Count 0.020 X10^3/uL (0.0-0.0); Mean Corp Hgb Conc 32.9 g/dL (32-36); Mean Corpuscular Volume 87.9 fL (81-99); Mean Platelet Vol. 10.5 fl (6.2-12.0); NRBC Flagged by Analyzer 0 % (0-5); Platelet Count 396 K/mm3 (150-450); RBC Distribution Width CV 12.9 % (11.6-14.6); RBC Distribution Width SD 41.8 fl (35.1-43.9); Red Blood Count 4.73 M/mm3 (4.2-5.4); White Blood Count 10.6 K/mm3 (4.4-11.0)
[2025-09-24 12:12] LABS: Cholesterol 189 mg/dL (<=200); Low Density Lipoprotein Calc. 117 mg/dL; Triglycerides 139 mg/dL; Very Low Density Lipoprotein 28 mg/dL (5-40); Vitamin B12 300 pg/mL (180-914); Vitamin D,25 Hydroxy 10.2 ng/mL (30-100); cholesterol:hdl ratio screen 4.04
[2025-09-24 12:24] LABS: AST(SGOT) 17 U/L (<=31); Alanine Aminotransfer ALT/SGPT 10 U/L (<=34); Albumin, Serum 4.0 g/dL (3.4-4.8); Alkaline Phosphatase 91 U/L (35-104); Anion Gap 15 (5-15); BUN 9 mg/dL (4-19); BUN/Creat Ratio 12.2 RATIO (10-20); Calcium,Total 9.3 mg/dL (7.6-11.0); Carbon Dioxide 21.5 mmol/L (21.0-32.0); Chloride 101 mmol/L (98-108); Globulin 3.2 g/dL (2.2-4.2); Glucose 196 mg/dL (70-99); Potassium 3.7 mmol/L (3.3-5.1)
== END | disposition home or self-care (01) ==
LOC: LAB 10:52
PROVIDERS: PCP Internal Medicine; Referring Provider Internal Medicine; Visit Provider Internal Medicine
DX: E11.9 Type 2 diabetes mellitus without complications (principal); I10 Essential (primary) hypertension; E55.9 Vitamin D deficiency, unspecified
CPT/HCPCS: 36415; 80053; 80061; 82306; 82607; 84443; 85025